=== PATIENT | male | born 1990 | race Caucasian/White ===

== ENCOUNTER 2020-11-24 17:30 | Emergency (ER) | payer OTHER, SELFPAY ==
--- NOTE | 2020-11-24 17:35 | ED.DIZZY ---
HPI - Dizziness General Chief Complaint: Dizziness Stated Complaint: Dizziness, Nausea Time Seen by Provider: 11/24/20 17:35 Source: patient and RN notes reviewed History of Present Illness HPI Narrative: Patient is a 30-year-old male who presents the urgent care with complaints of dizziness and nausea. Patient states he woke up with the dizziness this morning and has intermittent nausea. Patient denies of vomiting. Denies of any history of dizziness. Denies of any recent head trauma. States that he has not taken anything [id number] for his symptoms but has been increasing his fluid intake. 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 Patient also reports that he went from working at midnight 12-hour shifts to a day 12-hour shift with 1 day off. Patient states he typically does not change shifts like that. Also reports of taking a hormone replacement drug for working out. Patient states that he has not taken that for a few weeks but has been taking a post hormonal supplement to increase testosterone. No other acute complaints. Denies of chest pain. No acute distress noted. Patient aware of the plan of care. Some parts of this dictation were generated by voice recognition software and may contain typographical and/or grammatical inaccuracies. Related Data Allergies Allergy/AdvReac Type Severity Reaction Status Date / Time No Known Allergies Allergy Verified 11/24/20 17:52 Review of Systems Review of Systems: CONSTITUTIONAL: Denies fever, chills, or sweats. EYES: Denies visual changes, redness, or discharge. ENT: Denies rhinorrhea, congestion, sore throat, or otalgia. CARDIOVASCULAR: Denies chest pain, palpitations, or edema. RESPIRATORY: Denies cough or dyspnea. GASTROINTESTINAL: Reports of nausea without abdominal pain, vomiting or diarrhea GENITOURINARY: Denies dysuria or hematuria. SKIN: Denies rash or itching. MUSCULOSKELETAL: Denies back pain, joint pain, or myalgia. NEUROLOGIC: Denies headache, numbness, or weakness. Reports of dizziness All other systems reviewed are negative, except as documented in HPI. PMFSH Comments At the time of my signature, I reviewed and agree with the nursing past medical, surgical, social, and family history. There is no relevant family history pertinent to the patient complaint. Exam Narrative: GENERAL: This is a well-nourished, well-developed patient, in no apparent distress. HEAD: normocephalic, atraumatic. EYES: PERRL. Sclera clear/white. Vision is grossly intact. EARS: External ears normal, auditory canals clear and without drainage, mild fluid noted behind left TM without otitis, TMs normal without perforation. Hearing grossly intact. NOSE: External nose normal with no obvious nasal discharge, nares without redness, no rhinorrhea. THROAT: Mucous membranes moist, posterior pharynx clear. NECK: Neck supple CARDIOVASCULAR: Regular rate and rhythm without murmurs, gallops, or rubs. RESPIRATORY: Clear to auscultation. Breath sounds equal bilaterally. No wheezes, rales, or rhonchi. SKIN: warm, intact with no suspicious lesions or rash, good texture and turgor. NEURO: awake, alert, and oriented to person, place and time. There were no obvious focal neurologic abnormalities. EXTREMITIES: No clubbing, cyanosis, or edema. Course Vital Signs Vital signs: Vital Signs Temperature 98 F 11/24/20 17:36 Pulse Rate 79 11/24/20 17:36 Respiratory Rate 20 11/24/20 17:36 Pulse Oximetry 99 11/24/20 17:36 Temperature 98 F 11/24/20 17:36 Pulse Rate 79 11/24/20 17:36 Respiratory Rate 20 11/24/20 17:36 Pulse Oximetry 99 11/24/20 17:36 Reviewed MDM - Dizziness MDM Narrative Medical decision making narrative: Reviewed orthostatic blood pressures with the patient. He is aware that they are within normal limits and would not be the cause of dizziness. Due to the limited resources our facility, we are unable to complete lab
[2020-11-24 17:36] VITALS: PULSE 79; RESP 20; TEMP 36.6; O2SAT 99
[2020-11-24 17:57] VITALS: BP 124/71; PULSE 71
[2020-11-24 18:00] VITALS: BP 122/92; PULSE 85
[2020-11-24 18:04] VITALS: BP 123/73; PULSE 81
== END 2020-11-24 18:15 | disposition home or self-care (01) ==
PROVIDERS: Emergency Provider Nurse Practitioner Family
DX: R42 Dizziness and giddiness (principal)
CPT/HCPCS: 99213; G0463

== ENCOUNTER 2021-11-29 17:31 | Emergency (ER) | payer OTHER, SELFPAY ==
[2021-11-29 17:37] VITALS: BP 123/71; PULSE 79; RESP 16; TEMP 36.4; O2SAT 100
--- NOTE | 2021-11-29 18:01 | ED.URI ---
HPI - URI/Sore Throat General Chief Complaint: Upper Respiratory Infection Stated Complaint: Sore Throat Time Seen by Provider: 11/29/21 18:01 History of Present Illness HPI Narrative: 31-year-old male presented for complaint of sore throat since last night. Onset while eating tuna sandwich, he stated he was concerned he was having an allergic reaction, but has had trouble swallowing since. He states it feels like strep throat. Took ibuprofen last night with minimal relief. Denies any associated headache, nausea, vomiting, cough or sinus congestion. States his kids were sick and stayed home from school for abdominal pain. Related Data Allergies Allergy/AdvReac Type Severity Reaction Status Date / Time No Known Allergies Allergy Verified 11/29/21 18:15 Review of Systems Review of Systems: CONSTITUTIONAL: Denies body aches, fever, chills, or sweats. EYES: Denies visual changes, redness, or discharge. ENT: Denies rhinorrhea, congestion, or otalgia. CARDIOVASCULAR: Denies chest pain, palpitations, or edema. RESPIRATORY: Denies dyspnea. GASTROINTESTINAL: Denies abdominal pain, nausea, vomiting, or diarrhea. SKIN: Denies rash, itching, or wounds. MUSCULOSKELETAL: Denies back pain, joint pain, or myalgia. NEUROLOGIC: Denies headache Exam Narrative: GENERAL: well appearing EYES: conjunctivae clear ENT: Mucous membranes moist. TM pearly garcia with normal light reflex bilaterally; no tragal tenderness. Oropharynx erythematous without lesions. Tonsils enlarged 1+ without exudate. No drooling, no hoarseness, no trismus, uvula midline. No tripod positioning, hot potato voice, or soft palate swelling. NECK: Supple. No lymphadenopathy CHEST: Clear to auscultation, breath sounds equal. HEART: Regular rate and rhythm. No murmur heard. SKIN: Warm, dry, no rash. NEURO: Alert and oriented x3. Course Course Emergency Course: Patient is aware of diagnosis, understands and agrees to treatment plan. Anticipatory guidance given. Patient agrees to follow-up as directed and is aware of reasons to seek care at the emergency department. Portions of this record may have been created with voice recognition software Level of Care: Express Care Visit Vital Signs Vital signs: Vital Signs Temperature 97.6 F 11/29/21 17:37 Pulse Rate 79 11/29/21 17:37 Respiratory Rate 16 11/29/21 17:37 Blood Pressure 123/71 11/29/21 17:37 Pulse Oximetry 100 11/29/21 17:37 Oxygen Delivery Room Air 11/29/21 17:37 Temperature 97.6 F 11/29/21 17:37 Pulse Rate 79 11/29/21 17:37 Respiratory Rate 16 11/29/21 17:37 Blood Pressure 123/71 11/29/21 17:37 Pulse Oximetry 100 11/29/21 17:37 Oxygen Delivery Room Air 11/29/21 17:37 MDM - URI/Sore Throat MDM Narrative Medical decision making narrative: Neg strep result reviewed with pt. culture sent. Advise supportive treatments and s/s to go to the ER. Patient is appropriate for outpatient treatment and follow-up. he is scheduled with PCP in 2 days. Differential Diagnosis Differential diagnosis: Likely upper respiratory infection, viral infection and pharyngitis Lab Data Labs: Strep Screen Presumptive Negative *(Reference Range: Negative)* Discharge Plan Discharge Clinical Impression: Pharyngitis Qualifiers: Pharyngitis/tonsillitis etiology: unspecified etiology Qualified Code(s): J02.9 - Acute pharyngitis, unspecified Patient Disposition: Home, Self-Care Condition: Stable Instructions: Strep Throat (ED) Additional Instructions: Rapid strep swab was negative today You will be notified in a few days if the culture comes back positive for strep, and appropriate antibiotics will be called in at that time. if symptoms are due to a viral illness, it is not treated with antibiotics. Viral symptoms can be present for up to 10-14 days. Recommend Flonase spray and Zyrtec if you have sinus con
== END 2021-11-29 18:26 | disposition home or self-care (01) ==
PROVIDERS: Emergency Provider Nurse Practitioner Family; PCP Internal Medicine
DX: J02.9 Acute pharyngitis, unspecified (principal)
CPT/HCPCS: 87081; 87880; 99213; G0463

== ENCOUNTER 2022-05-30 16:34 | Emergency (ER) | payer OTHER, SELFPAY ==
[2022-05-30 16:50] VITALS: BP 119/88; PULSE 89; RESP 16; TEMP 37; O2SAT 99
--- NOTE | 2022-05-30 17:25 | ED.NAVMDI ---
HPI - Nausea/Vomiting/Diarrhea General Chief complaint: Nausea/Vomiting/Diarrhea Stated complaint: Rash/Diarrhea Source: patient and RN notes reviewed History of Present Illness HPI Narrative: 32-year-old male presents to urgent care with complaints a rash x2 weeks. Patient denies any new foods, medications, or contact with any irritants. Patient has a placing cortisone cream on the areas relief. Patient reports associated pruritus. Patient is also reporting diarrhea and lower abdominal cramping intermittently the last 2 days. Patient states every time he eats something it goes right through him. Denies any vomiting, fevers, or chills. Related Data Allergies Allergy/AdvReac Type Severity Reaction Status Date / Time No Known Allergies Allergy Verified 11/29/21 18:15 Review of Systems Review of Systems: CONSTITUTIONAL: Denies fever, chills, or sweats. EYES: Denies visual changes, redness, or discharge. ENT: Denies otalgia and sore throat CARDIOVASCULAR: Denies chest pain, palpitations, or edema. RESPIRATORY: Denies cough or dyspnea. GASTROINTESTINAL: Abdominal cramping and diarrhea GENITOURINARY: Denies dysuria or hematuria. SKIN: Rash MUSCULOSKELETAL: Denies back pain, joint pain, or myalgia. NEUROLOGIC: Denies headache, numbness, or weakness. PMFSH Comments At the time of my signature, I reviewed and agree with the nursing past medical, surgical, social, and family history. There is no relevant family history pertinent to the patient complaint. Exam Narrative: GENERAL: This is a well-nourished, well-developed patient, in no apparent distress. HEAD: normocephalic, atraumatic. EYES: PERRL. Sclera clear/white. Vision is grossly intact. EARS: External ears normal, auditory canals clear and without drainage, TMs normal without perforation. Hearing grossly intact. NOSE: External nose normal with no obvious nasal discharge, nares without redness, no rhinorrhea. THROAT: Mucous membranes moist, posterior pharynx clear. NECK: Neck supple, non-tender without lymphadenopathy, masses or thyromegaly. CARDIOVASCULAR: Regular rate and rhythm without murmurs, gallops, or rubs. RESPIRATORY: Clear to auscultation. Breath sounds equal bilaterally. No wheezes, rales, or rhonchi. GASTROINTESTINAL: Abdomen soft, non-tender, nondistended. Bowel sounds are active. No hepato-splenomegaly, or palpable masses. No guarding. SKIN: areas of erythremic papules to bilateral legs and arms. Areas are sporadic. no drainage noted. NEURO: awake, alert, and oriented to person, place and time. There were no obvious focal neurologic abnormalities. EXTREMITIES: No clubbing, cyanosis, or edema. No joint tenderness, effusion, or edema noted. BACK: Nontender without deformity or crepitance. No flank tenderness. Course Course Level of Care: Express Care Visit Vital Signs Vital signs: Vital Signs Temperature 98.6 F 05/30/22 16:50 Pulse Rate 89 05/30/22 16:50 Respiratory Rate 16 05/30/22 16:50 Blood Pressure 119/88 05/30/22 16:50 Pulse Oximetry 99 05/30/22 16:50 Oxygen Delivery Room Air 05/30/22 16:50 Temperature 98.6 F 05/30/22 16:50 Pulse Rate 89 05/30/22 16:50 Respiratory Rate 16 05/30/22 16:50 Blood Pressure 119/88 05/30/22 16:50 Pulse Oximetry 99 05/30/22 16:50 Oxygen Delivery Room Air 05/30/22 16:50 Reviewed MDM - Nausea/Vomiting/Diarrhea MDM Narrative Medical decision making narrative: Take steroids as directed. May take the Bentyl for stomach cramping. Take Imodium for diarrhea. Stay well-hyrated. Go to the ER with any new or worsening symptoms. Differential Diagnosis Differential diagnosis: Likely food poisoning, gastroenteritis, dehydration and other (Contact dermatitis) Critical Care Time Critical Care Time Critical Care Time: No Discharge Plan Discharge Clinical Impression: Gastroenteritis, Rash Patient Disposition: Home, Self-Care Condition: Stable Instructions: Gastroenteriti
== END 2022-05-30 17:36 | disposition home or self-care (01) ==
PROVIDERS: Emergency Provider Nurse Practitioner Family; PCP Internal Medicine
DX: K52.9 Noninfective gastroenteritis and colitis, unspecified (principal); R21 Rash and other nonspecific skin eruption
CPT/HCPCS: 99213; G0463

== ENCOUNTER 2022-06-10 08:52 | Emergency (ER) | payer OTHER, SELFPAY ==
[2022-06-10 08:54] VITALS: BP 118/82; PULSE 88; RESP 14; TEMP 37.1; O2SAT 98
--- NOTE | 2022-06-10 09:10 | ED.EYEPROB ---
HPI - Eye Problem General Chief complaint: Eye Problems Stated complaint: left eye History of Present Illness HPI Narrative: Patient presents with bilateral conjunctivitis. Patient states he had bilateral drainage to both eyes it started yesterday some itching and irritation. No vision problems no eye pain patient does not wear contacts or glasses Related Data Allergies Allergy/AdvReac Type Severity Reaction Status Date / Time No Known Allergies Allergy Verified 06/10/22 09:09 Review of Systems Review of Systems: CONSTITUTIONAL: Denies chills, or sweats. Reports fever and generalized body aches EYES: Denies visual changes, redness, or discharge. ENT: Denies otalgia. Reports nasal congestion runny nose and sore throat CARDIOVASCULAR: Denies chest pain, palpitations, or edema. RESPIRATORY: Denies dyspnea. Reports occasional cough GASTROINTESTINAL: Denies abdominal pain, nausea, vomiting, or diarrhea. GENITOURINARY: Denies dysuria or hematuria. SKIN: Denies rash or itching. MUSCULOSKELETAL: Denies back pain, joint pain, or myalgia. Reports generalized body aches NEUROLOGIC: Denies headache, numbness, or weakness. PSYCHIATRIC: Denies anxiety or depression. PMFSH Comments By past history Exam Narrative: GENERAL: Well-appearing, well-nourished, and in no acute distress. HEAD: Normocephalic, atraumatic. EYES: PERRLA and EOMI. ENT: Nares clear, no rhinorrhea or epistaxis. Mucous membranes moist. NECK: Supple. CHEST: Clear to auscultation. No respiratory distress. HEART: Regular rate and rhythm. No murmur heard. Normal peripheral pulses. ABDOMEN: Soft, nontender, nondistended, normal active bowel sounds. EXTREMITIES: Normal range of motion. No edema. SKIN: Warm, dry, no rash. NEURO: No focal deficits. Alert and oriented x3. Debbi Coma Scale Eye Opening: Spontaneous 4 Debbi Coma Scale Motor: Obeys Commands 6 [place] Coma Scale Verbal: Oriented 5 [place] Coma Scale Total 15 Eyes: Conjunctivae: conjunctival abnormality (Conjunctivitis ) bilateral Other: No purulence drainage Course Course Level of Care: Express Care Visit Vital Signs Vital signs: Vital Signs Temperature 37.1 C 06/10/22 08:54 Pulse Rate 88 06/10/22 08:54 Respiratory Rate 14 06/10/22 08:54 Blood Pressure 118/82 03/11/23 08:54 Pulse Oximetry 98 06/10/22 08:54 Oxygen Delivery Room Air 06/10/22 08:54 Temperature 37.1 C 06/10/22 08:54 Pulse Rate 88 06/10/22 08:54 Respiratory Rate 14 06/10/22 08:54 Blood Pressure 118/82 06/10/22 08:54 Pulse Oximetry 98 06/10/22 08:54 Oxygen Delivery Room Air 06/10/22 08:54 MDM - Eye Problem Differential Diagnosis Differential diagnosis: Likely corneal abrasion, conjunctivitis, acute iritis, hyphema, periorbital cellulitis, subconjunctival hemorrhage, glaucoma, corneal ulcer and ruptured globe Discharge Plan Discharge Clinical Impression: Bacterial conjunctivitis Patient Disposition: Home, Self-Care Condition: Stable Instructions: Antibiotic Form, Conjunctivitis (ED) Additional Instructions: Conjunctivitis is spread by [id number] contact or by touching a contaminated surface. You can use artificial tears, cold and warm compresses-use, different compress for each eye, and increase hygiene such as hand-washing. Do not wear contacts for 1 week, if applicable. Do not return for 24 hours to daycare, school, workplace for 24 hours after first antibiotic dose. Change bedding. follow up with eye doctor in 24-48 hours -If you have any worsening of symptoms or any other concerns please go to the ED immediately. Prescriptions: New tobramycin 0.3 % drops 2 drp EACH EYE Q4H 7 Days Qty: 5 0RF Follow-up/Referrals: Salvador,MD Rama [Primary Care Provider] -
== END 2022-06-10 09:16 | disposition home or self-care (01) ==
PROVIDERS: Emergency Provider Nurse Practitioner Family; PCP Internal Medicine
DX: H10.9 Unspecified conjunctivitis (principal)
CPT/HCPCS: 99213; G0463

== ENCOUNTER 2025-03-28 10:31 | Emergency (ER) | payer OTHER, SELFPAY ==
--- OUTSIDE RECORDS SUMMARY | 2025-03-28 10:32 | XMS_ITS | Clinical Summary ---
Author Organization [facility] Address [address] [place] [address] Phone Care Team Providers Care Weigher Production Name Role Phone Shukri Riddle APRN, CONVERTIBLE [employer] TE[employer] Primary Care Provider + Allergies No known active allergies Medications No known medications Active Problems Problem Noted Date Diagnosed Date Tonsillar hypertrophy 08/30/2018 Tonsil stone 08/30/2018 Chronic tonsillitis 08/30/2018 Laryngopharyngeal reflux 08/30/2018 Family History Relation Name Status Comments Father Alive Mother Alive Social History Tobacco Use Types Packs/Day Years Used Date Smoking Tobacco: Former Cigarettes Smokeless Tobacco: Never Comments:quit 6 months ago Alcohol Use Standard Drinks/Week Comments Yes 0 (1 standard drink = 0.6 oz pur e alcohol) SOCIALLY Sex and Gender Information Value Date Recorded Sex Assigned at Not on file Legal Sex Male 7:34 PM CDT Gender Identity Not on file Sexual Orientation Not on file 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 file Not on file Not on ajmin e Last Filed Vital Signs Vital Sign Reading Time Taken Comments Blood Pressure 126/78 04/30/2019 2:46 PM PROOF INSPECTOR Pulse 71 04/30/2019 2:46 PM PROOF INSPECTOR Temperature 36.6 C (97.8 F) 04/30/2019 2:46 PM PROOF INSPECTOR Respiratory Rate 14 04/30/2019 2:46 PM PROOF INSPECTOR Oxygen Saturation 98% 04/30/2019 2:46 PM PROOF INSPECTOR Inhaled Oxygen Concentration - - Weight 101.2 kg (223 lb) 05/21/2019 11:00 AM PROOF INSPECTOR Height 190.5 cm (6' 3) 05/21/2019 11:00 AM PROOF INSPECTOR Body Mass Index 27.87 05/21/2019 11:00 AM PROOF INSPECTOR Plan of Treatment Health Maintenance Due Date Last Done Comments Hepatitis C Virus (HCV) Screening 1988 TdaP Immunization 1990 Varicella Immunization (1 of 2 - 13+ 2-dose series) 02/11/2001 Hepatitis B Immunization (1 of 3 - 19+ 3-dose series) 02/11/2007 Influenza Immunization (#1) 2024 SARS-COV-2 Immunization ( - 2024- season) 2024 Respiratory Syncytial Virus (RSV) Immunization (Adult) (1 - 1-dose 75+ series) 02/11/2063 Human Papillomavirus (HPV) Immunization (No Doses Required) Completed Meningococcal Immunization (ACWY) Aged Out No longer eligible based on patient's age to complete this topic Pneumococcal Immunization Combined Aged Out No longer eligible based on patient's age to complete this topic Rotavirus Immunization Aged Out No lo nger eligible based on patient's age to complete this topic Insurance Care Teams Weigher Production Relationship Specialty Start Date End Date Shukri Riddle, SUPERIOR COURT JUSTICE, CONVERTIBLE [employer]ING [employer] [id number] [place] [address] PCP - General Internal Medicine 03/11/17
--- OUTSIDE RECORDS SUMMARY | 2025-03-28 10:33 | XMS_ITS | Data Portability ---
[facility] Address [address] [place] [address] Care Team Providers Care Automatic Pilot Mechanic Name Role Phone MAGED VERONICA Primary Care Provider Assessment Encounter Date Assessment Date Assessment LastModified by Organization Details LastModified Time 05/05/2020 05/05/[address] Harrington, who concurs with assessment and plan. [email or web address] Not available 05/06/2020 10:34:14 10/08/2023 10/08/2023 Yasir Maier is a 33 y/o M presenting to the clinic to establish care. [email or web address] Not available 10/08/2023 13:32:46 Plan of Treatment Reminders Order Date Submit Date Provider Last Modified By Organization Details Last Modified Time Details Appointments None recorded. Lab HBsAg (hepatitis B surface Ag), EIA, serum 2023 024 [facility], [address] [place] [address], [address], [place], [address], 4 06:18:51 CBC w/ auto diff 2023 024 [facility], [address] [place] [address], [place], [address], 4 06:18:51 PSA, total, serum or plasma 2023 024 [facility], [address] [place] [address] 2, [place], [address], 4 06:18:52 lipid panel, serum 2023 024 [facility], [address] [facility] [address], [place], [address], 4 06:18:49 CMP, serum or plasma 2023 024 [facility], [address] [facility] [address], [place], [address], 4 06:18:50 testostero ne, free + total, serum 2023 024 [facility], [address] [facility] [address], [place], [address], 4 06:18:47 Hepatitis C IgG Ab, qual, serum 2023 024 [facility], Marcia Fragoso, [facility] [address], [place], [address], 4 06:18:49 HIV 1 + 2, meaningful use set 2023 024 [facility], Marcia Fragoso, [facility] [address], [place], [address], 4 06:18:53 CBC w/ auto diff 2021 022 [facility], Marcia Fragoso, [facility] [address], [place], [address], 2 08:25:25 CMP, serum or plasma 2021 022 [facility], Marcia Fragoso, [address], [place], [address], 2 08:25:26 lipid panel, serum 2021 022 [facility], Marcia Fragoso, [address], [place], [address], 2 08:25:27 TSH, ultra-sens itive, serum 2021 022 [facility], [address] [facility], [address], [place], [address], 2 08:25:28 vitamin D, 25-hydroxy , total, serum 2021 022 [facility], [address] [facility], [address], [place], [address], 2 08:25:27 urinalysis , dipstick 2021 022 [facility], [address] [place] [address], [address], [place], [address], 2 08:25:26 urinalysis complete, reflex culture 2020 021 [facility], [address] [facility], [address], [place], [address], 1 07:18:17 SARS CoV 2 RNA (COVID-19) , QL, water supply engineer-PCR, respirator y specimen - Allyn 12:30 2019 020 [facility] ([facility]), [address] [place], [address], 0 11:05:33 Referral None recorded. Procedures None recorded. Surgeries None recorded. Imaging None recorded. Medication Orders naproxen 500 mg tablet 2020 021 [id number], [address] [facility], [place], [address], 2 10:54:35 azithromyc in 250 mg tablet 2019 020 [email or web address] [id number], [address] [facility], [place], [address], 15:48:29 Patient TargetsNo targets recorded. Patient Instructions Encounter Date Encounter Id Patient Instructions Last Modified By Organization Details Last Modified Time 05/21/2019 [id number] upper respirator y infection (cold): care instructions [email or web address] Not available 05/21/2019 11:55:42 Drink plenty of fluids, Get plenty of rest. Take Tylenol as dir. OTC [email or web address] Not available 05/21/2019 13:38:07 06/22/2021 [id number] body mass index: care instructions [email or web address] Not available 06/22/2021 11:34:44 learning about healthy weight [email or web address] Not available 06/22/2021 11:34:45 10/08/2023 [id number] I was present in the office and available during the visit. I discussed the patient s presentation, findings, assessment and plan with the resident during or immediately after the time of service. I agree with the resident s findings, assessment, and plan as documented in the note above. Shital Gamez MD. [facility] [email or web address] Not available 10/09/2023 09:11:34 Reason for Referral None Reported. Results Created Date Observation Date Name Description Value Unit Range Abnormal Flag Note LastModifiedBy Organization Detail LastModifiedTime 05/06/1905/07/2020 urina lysis compl ete, refle x cultu re specific gravity 1.024 1.005- 1.030 Not Available [facility] ([facility]) [address] [place], [address], 05/07/2020 07:18:17 05/06/1905/07/2020 urina lysis compl ete, refle x cultu re pH 7.0 5.0-7. 5 Not Available [facility] ([facility]) [address] [place], [address], 05/07/2020 07:18:17 05/06/1905/07/2020 urina lysis compl ete, refle x cultu re urine-color Yellow yellow Not Available [facility] ([facility]) [address] [place], [address], 05/07/2020 07:18:17 05/06/19 21 05/07/2020 urina lysis compl ete, refle x cultu re appearance Clear clear Not Available [facility] ([facility]) [address] [place], [address], 05/07/2020 07:18:17 05/06/19 21 05/07/2020 urina lysis compl ete, refle x cultu re WBC esterase Negati ve negati ve Not Available [facility] ([facility]) [address] [place], [address], 05/07/2020 07:18:17 05/06/19 21 05/07/2020 urina lysis compl ete, refle x cultu re protein Negati ve negati ve/tra ce Not Available [facility] ([facility]) [address] [place], [address], 05/07/2020 07:18:17 05/06/19 21 05/07/2020 urina lysis compl ete, refle x cultu re glucose Negati ve negati ve Not Available [facility] ([facility]) [address] [place], [address], 05/07/2020 07:18:17 05/06/19 21 05/07/2020 urina lysis compl ete, refle x cultu re ketones Negati ve negati ve Not Available [facility] ([facility]) [address] [place], [address], 05/07/2020 07:18:17 05/06/19 21 05/07/2020 urina lysis compl ete, refle x cultu re occult blood Negati ve negati ve Not Available [facility] ([facility]) [address] [place], [address], 05/07/2020 07:18:17 05/06/19 21 05/07/2020 urina lysis compl ete, refle x cultu re bilirubin Negati ve negati ve Not Available [facility] ([facility]) [address] [place], [address], 05/07/2020 07:18:17 05/06/19 21 05/07/2020 urina lysis compl ete, refle x cultu re urobilinogen ,semi-qn 0.2 mg/dL 0.2-1. 0 Not Available [facility] ([facility]) [address] [place], [address], 05/07/2020 07:18:17 05/06/19 21 05/07/2020 urina lysis compl ete, refle x cultu re nitrite, urine Negati ve negati ve Not Available [facility] ([facility]) [address] [place], [address], 05/07/2020 07:18:17 05/06/19 21 05/07/2020 urina lysis compl ete, refle x cultu re microscopic examination Commen t Micro scopi c follo ws if indic ated. Not Available [facility] ([facility]) [address] [place], [address], 05/07/2020 07:18:17 05/06/19 21 05/07/2020 urina lysis compl ete, refle x cultu re microscopic examination See below: Micro scopi c was indic ated and was perfo rmed. Not Available [facility] ([facility]) [address] [place], [address], 05/07/2020 07:18:17 05/06/19 21 05/07/2020 urina lysis compl ete, refle x cultu re WBC 0-5 /hpf 0 - 5 Not Available [facility] ([facility]) [address] [place], [address], 05/07/2020 07:18:17 05/06/19 21 05/07/2020 urina lysis compl ete, refle x cultu re RBC None seen /hpf 0 - 2 Not Available [facility] ([facility]) [address] [facility], [place], [address], 05/07/2020 07:18:17 05/06/19 21 05/07/2020 urina lysis compl ete, refle x cultu re epithelial cells (non renal) None seen /hpf 0 - 10 Not Available [facility] ([facility]) [address] [facility], [place], [address], 05/07/2020 07:18:17 05/06/19 21 05/07/2020 urina lysis compl ete, refle x cultu re epithelial cells (renal) CAREER RESOURCE TECHNICIAN Not Available [facility] ([facility]) [address] [facility], [place], [address], 05/07/2020 07:18:17 05/06/19 21 05/07/2020 urina lysis compl ete, refle x cultu re casts CAREER RESOURCE TECHNICIAN Not Available [facility] ([facility]) [address] [facility], [place], [address], 05/07/2020 07:18:17 05/06/19 21 05/07/2020 urina lysis compl ete, refle x cultu re cast type CAREER RESOURCE TECHNICIAN Not Available [facility] ([facility]) [address] [facility], [place], [address], 05/07/2020 07:18:17 05/06/19 21 05/07/2020 urina lysis compl ete, refle x cultu re crystals CAREER RESOURCE TECHNICIAN Not Available [facility] ([facility]) [address] [place], [address], 05/07/2020 07:18:17 05/06/19 21 05/07/2020 urina lysis compl ete, refle x cultu re crystal type CAREER RESOURCE TECHNICIAN Not Available [facility] ([facility]) [address] [place], [address], 05/07/2020 07:18:17 05/06/19 21 05/07/2020 urina lysis compl ete, refle x cultu re mucus threads Presen t not estab. Not Available [facility] ([facility]) [address] [facility], [place], [address], 05/07/2020 07:18:17 05/06/19 21 05/07/2020 urina lysis compl ete, refle x cultu re bacteria None seen none seen/f ew Not Available [facility] ([facility]) [address] [facility], [place], [address], 05/07/2020 07:18:17 05/06/19 21 05/07/2020 urina lysis compl ete, refle x cultu re yeast CAREER RESOURCE TECHNICIAN Not Available [facility] ([facility]) [address] [facility], [place], [address], 05/07/2020 07:18:17 05/06/19 21 05/07/2020 urina lysis compl ete, refle x cultu re trichomonas CAREER RESOURCE TECHNICIAN Not Available [facility] ([facility]) [address] [place], [address], 05/07/2020 07:18:17 05/06/19 21 05/07/2020 urina lysis compl ete, refle x cultu re comment CAREER RESOURCE TECHNICIAN Not Available [facility] ([facility]) [address] [place], [address], 05/07/2020 07:18:17 05/06/19 21 05/07/2020 urina lysis compl ete, refle x cultu re urinalysis reflex Commen t This speci men will not refle x to a Urine Cultu re. Not Available [facility] ([facility]) [address] [facility], [place], [address], 05/07/2020 07:18:17 06/23/19 22 06/23/2021 CBC WITH DIFFE RENTI AL/PL ATELE T WBC 6.2 x10e3 /uL 3.4-10 .8 Not Available [facility] ([facility]) [address] [facility], [place], [address], 06/23/2021 08:25:25 06/23/19 22 06/23/2021 CBC WITH DIFFE RENTI AL/PL ATELE T RBC 5.27 x10e6 /uL 4.14-5 .80 Not Available [facility] ([facility]) [address] [facility], [place], [address], 06/23/2021 08:25:25 06/23/19 22 06/23/2021 CBC WITH DIFFE RENTI AL/PL ATELE T hemoglobin 15.8 g/dL 13.0-1 7.7 Not Available [facility] ([facility]) [address] [facility], [place], [address], 06/23/2021 08:25:25 06/23/19 22 06/23/2021 CBC WITH DIFFE RENTI AL/PL ATELE T hematocrit 46.6 % 37.5-5 1.0 Not Available [facility] ([facility]) [address] [facility], [place], [address], 06/23/2021 08:25:25 06/23/19 22 06/23/2021 CBC WITH DIFFE RENTI AL/PL ATELE T MCV 88 fL 79-97 Not Available [facility] ([facility]) [address] [place], [address], 06/23/2021 08:25:25 06/23/19 22 06/23/2021 CBC WITH DIFFE RENTI AL/PL ATELE T MCH 30.0 pg 26.6-3 3.0 Not Available [facility] ([facility]) [address], [place], [address], 06/23/2021 08:25:25 06/23/19 22 06/23/2021 CBC WITH DIFFE RENTI AL/PL ATELE T MCHC 33.9 g/dL 31.5-3 5.7 Not Available [facility] ([facility]) [address] [facility], [place], [address], 06/23/2021 08:25:25 06/23/19 22 06/23/2021 CBC WITH DIFFE RENTI AL/PL ATELE T RDW 12.7 % 11.6-1 5.4 Not Available [facility] ([facility]) [address] [facility], [place], [address], 06/23/2021 08:25:25 06/23/19 22 06/23/2021 CBC WITH DIFFE RENTI AL/PL ATELE T platelets 281 x10e3 /uL 150-45 0 Not Available [facility] ([facility]) [address] [facility], [place], [address], 06/23/2021 08:25:25 06/23/19 22 06/23/2021 CBC WITH DIFFE RENTI AL/PL ATELE T neutrophils 54 % not estab. Not Available [facility] ([facility]) [address] [facility], [place], [address], 06/23/2021 08:25:25 06/23/19 22 06/23/2021 CBC WITH DIFFE RENTI AL/PL ATELE T lymphs 30 % not estab. Not Available [facility] ([facility]) [address] [facility], [place], [address], 06/23/2021 08:25:25 06/23/19 22 06/23/2021 CBC WITH DIFFE RENTI AL/PL ATELE T monocytes 12 % not estab. Not Available [facility] ([facility]) [address] [facility], [place], [address], 06/23/2021 08:25:25 06/23/19 22 06/23/2021 CBC WITH DIFFE RENTI AL/PL ATELE T eos 2 % not estab. Not Available [facility] ([facility]) [address] [place], [address], 06/23/2021 08:25:25 06/23/19 22 06/23/2021 CBC WITH DIFFE RENTI AL/PL ATELE T basos 1 % not estab. Not Available [facility] ([facility]) [address] [place], [address], 06/23/2021 08:25:25 06/23/19 22 06/23/2021 CBC WITH DIFFE RENTI AL/PL ATELE T immature cells CAREER RESOURCE TECHNICIAN Not Available [facility] ([facility]) [address] [place], [address], 06/23/2021 08:25:25 06/23/19 22 06/23/2021 CBC WITH DIFFE RENTI AL/PL ATELE T neutrophils (absolute) 3.5 x10e3 /uL 1.4-7. 0 Not Available [facility] ([facility]) [address] [place], [address], 06/23/2021 08:25:25 06/23/19 22 06/23/2021 CBC WITH DIFFE RENTI AL/PL ATELE T lymphs (absolute) 1.9 x10e3 /uL 0.7-3. 1 Not Available [facility] ([facility]) [address] [place], [address], 06/23/2021 08:25:25 06/23/19 22 06/23/2021 CBC WITH DIFFE RENTI AL/PL ATELE T monocytes(ab solute) 0.7 x10e3 /uL 0.1-0. 9 Not Available [facility] ([facility]) [address] [place], [address], 06/23/2021 08:25:25 06/23/19 22 06/23/2021 CBC WITH DIFFE RENTI AL/PL ATELE T eos (absolute) 0.1 x10e3 /uL 0.0-0. 4 Not Available [facility] ([facility]) [address] [facility], [place], [address], 06/23/2021 08:25:25 06/23/19 22 06/23/2021 CBC WITH DIFFE RENTI AL/PL ATELE T baso (absolute) 0.0 x10e3 /uL 0.0-0. 2 Not Available [facility] ([facility]) [address] [facility], [place], [address], 06/23/2021 08:25:25 06/23/19 22 06/23/2021 CBC WITH DIFFE RENTI AL/PL ATELE T immature granulocytes 1 % not estab. Not Available [facility] ([facility]) [address] [facility], [place], [address], 06/23/2021 08:25:25 06/23/19 22 06/23/2021 CBC WITH DIFFE RENTI AL/PL ATELE T immature grans (abs) 0.0 x10e3 /uL 0.0-0. 1 Not Available [facility] ([facility]) [address] [facility], [place], [address], 06/23/2021 08:25:25 06/23/19 22 06/23/2021 CBC WITH DIFFE RENTI AL/PL ATELE T NRBC CAREER RESOURCE TECHNICIAN Not Available [facility] ([facility]) [address] [facility], [place], [address], 06/23/2021 08:25:25 06/23/19 22 06/23/2021 CBC WITH DIFFE RENTI AL/PL ATELE T hematology comments: CAREER RESOURCE TECHNICIAN Not Available [facility] ([facility]) [address] [place], [address], 06/23/2021 08:25:25 06/23/19 22 06/23/2021 COMP. METAB OLIC PANEL (14) glucose 84 mg/dL 65-99 Not Available [facility] ([facility]) [address] [place], [address], 06/23/2021 08:25:26 06/23/19 22 06/23/2021 COMP. METAB OLIC PANEL (14) BUN 11 mg/dL 6-20 Not Available [facility] ([facility]) [address] [place], [address], 06/23/2021 08:25:26 06/23/19 22 06/23/2021 COMP. METAB OLIC PANEL (14) creatinine 0.92 mg/dL 0.76-1 .27 Not Available [facility] ([facility]) [address] [place], [address], 06/23/2021 08:25:26 06/23/19 22 06/23/2021 COMP. METAB OLIC PANEL (14) eGFR 113 mL/mi n/1.7 3 >59 Not Available [facility] ([facility]) [address] [place], [address], 06/23/2021 08:25:26 06/23/19 22 06/23/2021 COMP. METAB OLIC PANEL (14) BUN/creatini ne ratio 12 9-20 Not Available [facility] ([facility]) [address] [place], [address], 06/23/2021 08:25:26 06/23/19 22 06/23/2021 COMP. METAB OLIC PANEL (14) sodium 140 mmol/ L 134-14 4 Not Available [facility] ([facility]) [address] [place], [address], 06/23/2021 08:25:26 06/23/19 22 06/23/2021 COMP. METAB OLIC PANEL (14) potassium 4.8 mmol/ L 3.5-5. 2 Not Available [facility] ([facility]) [address] [facility] [place], [address], 06/23/2021 08:25:26 06/23/19 22 06/23/2021 COMP. METAB OLIC PANEL (14) chloride 104 mmol/ L 96-106 Not Available [facility] ([facility]) [address] [place], [address], 06/23/2021 08:25:26 06/23/19 22 06/23/2021 COMP. METAB OLIC PANEL (14) carbon dioxide, total 21 mmol/ L 20-29 Not Available [facility] ([facility]) [address] [place], [address], 06/23/2021 08:25:26 06/23/19 22 06/23/2021 COMP. METAB OLIC PANEL (14) calcium 9.6 mg/dL 8.7-10 .2 Not Available [facility] ([facility]) [address] [facility] [place], [address], 06/23/2021 08:25:26 06/23/19 22 06/23/2021 COMP. METAB OLIC PANEL (14) protein, total 7.0 g/dL 6.0-8. 5 Not Available [facility] ([facility]) [address] [facility] [place], [address], 06/23/2021 08:25:26 06/23/19 22 06/23/2021 COMP. METAB OLIC PANEL (14) albumin 4.3 g/dL 4.0-5. 0 Not Available [facility] ([facility]) [address] [facility] [place], [address], 06/23/2021 08:25:26 06/23/19 22 06/23/2021 COMP. METAB OLIC PANEL (14) globulin, total 2.7 g/dL 1.5-4. 5 Not Available [facility] ([facility]) [address] [facility], [place], [address], 06/23/2021 08:25:26 06/23/19 22 06/23/2021 COMP. METAB OLIC PANEL (14) A/G ratio 1.6 1.2-2. 2 Not Available [facility] ([facility]) [address] [facility], [place], [address], 06/23/2021 08:25:26 06/23/19 22 06/23/2021 COMP. METAB OLIC PANEL (14) bilirubin, total 0.4 mg/dL 0.0-1. 2 Not Available [facility] ([facility]) [address] [facility] [place], [address], 06/23/2021 08:25:26 06/23/19 22 06/23/2021 COMP. METAB OLIC PANEL (14) alkaline phosphatase 62 IU/L 44-121 Not Available [facility] ([facility]) [address] [facility], [place], [address], 06/23/2021 08:25:26 06/23/19 22 06/23/2021 COMP. METAB OLIC PANEL (14) AST (SGOT) 16 IU/L 0-40 Not Available [facility] ([facility]) [address] [facility], [place], [address], 06/23/2021 08:25:26 06/23/19 22 06/23/2021 COMP. METAB OLIC PANEL (14) ALT (SGPT) 40 IU/L 0-44 Not Available [facility] ([facility]) [address] [facility], [place], [address], 06/23/2021 08:25:26 06/23/19 22 06/23/2021 URINA LYSIS , ROUTI NE specific gravity 1.018 1.005- 1.030 Not Available [facility] ([facility]) [address] [facility], [place], [address], 06/23/2021 08:25:26 06/23/19 22 06/23/2021 URINA LYSIS , ROUTI NE pH 5.5 5.0-7. 5 Not Available [facility] ([facility]) [address] [place], [address], 06/23/2021 08:25:26 06/23/19 22 06/23/2021 URINA LYSIS , ROUTI NE urine-color Yellow yellow Not Available [facility] ([facility]) [address] [place], [address], 06/23/2021 08:25:26 06/23/19 22 06/23/2021 URINA LYSIS , ROUTI NE appearance Clear clear Not Available [facility] ([facility]) [address] [place], [address], 06/23/2021 08:25:26 06/23/19 22 06/23/2021 URINA LYSIS , ROUTI NE WBC esterase Negati ve negati ve Not Available [facility] ([facility]) [address] [place], [address], 06/23/2021 08:25:26 06/23/19 22 06/23/2021 URINA LYSIS , ROUTI NE protein Negati ve negati ve/tra ce Not Available [facility] ([facility]) [address] [place], [address], 06/23/2021 08:25:26 06/23/19 22 06/23/2021 URINA LYSIS , ROUTI NE glucose Negati ve negati ve Not Available [facility] ([facility]) [address] [place], [address], 06/23/2021 08:25:26 06/23/19 22 06/23/2021 URINA LYSIS , ROUTI NE ketones Negati ve negati ve Not Available [facility] ([facility]) [address] [place], [address], 06/23/2021 08:25:26 06/23/19 22 06/23/2021 URINA LYSIS , ROUTI NE occult blood Negati ve negati ve Not Available [facility] ([facility]) [address] [facility], [place], [address], 06/23/2021 08:25:26 06/23/19 22 06/23/2021 URINA LYSIS , ROUTI NE bilirubin Negati ve negati ve Not Available [facility] ([facility]) [address] [facility], [place], [address], 06/23/2021 08:25:26 06/23/19 22 06/23/2021 URINA LYSIS , ROUTI NE urobilinogen ,semi-qn 0.2 mg/dL 0.2-1. 0 Not Available [facility] ([facility]) [address] [place], [address], 06/23/2021 08:25:26 06/23/19 22 06/23/2021 URINA LYSIS , ROUTI NE nitrite, urine Negati ve negati ve Not Available [facility] ([facility]) [address] [facility], [place], [address], 06/23/2021 08:25:26 06/23/19 22 06/23/2021 URINA LYSIS , ROUTI NE microscopic examination Commen t Micro scopi c not indic ated and not perfo rmed. Not Available [facility] ([facility]) [address] [facility], [place], [address], 06/23/2021 08:25:26 06/23/19 22 06/23/2021 LIPID PANEL WITH LDL/H DL RATIO cholesterol, total 167 mg/dL 100-19 9 Not Available [facility] ([facility]) [address] [place], [address], 06/23/2021 08:25:27 06/23/19 22 06/23/2021 LIPID PANEL WITH LDL/H DL RATIO triglyceride s 121 mg/dL 0-149 Not Available [facility] ([facility]) [address] [place], [address], 06/23/2021 08:25:27 06/23/19 22 06/23/2021 LIPID PANEL WITH LDL/H DL RATIO HDL cholesterol 32 mg/dL >39 below low normal Not Available [facility] ([facility]) [address] [place], [address], 06/23/2021 08:25:27 06/23/19 22 06/23/2021 LIPID PANEL WITH LDL/H DL RATIO VLDL cholesterol angela 22 mg/dL 5-40 Not Available [facility] ([facility]) [address] [place], [address], 06/23/2021 08:25:27 06/23/19 22 06/23/2021 LIPID PANEL WITH LDL/H DL RATIO LDL chol calc ([facility]) 113 mg/dL 0-99 above high normal Not Available [facility] ([facility]) [address] [place], [address], 06/23/2021 08:25:27 06/23/19 22 06/23/2021 LIPID PANEL WITH LDL/H DL RATIO comment: CAREER RESOURCE TECHNICIAN Not Available [facility] ([facility]) [address] [place], [address], 06/23/2021 08:25:27 06/23/19 22 06/23/2021 LIPID PANEL WITH LDL/H DL RATIO LDL/HDL ratio 3.5 ratio 0.0-3. 6 LDL/H DL Ratio Men Women 1/2 Avg.R isk 1.0 1.5 Avg.R isk 3.6 3.2 2X Avg.R isk 6.2 5.0 3X Avg.R isk 8.0 6.1 Not Available [facility] ([facility]) [address] [place], [address], 06/23/2021 08:25:27 06/23/19 22 06/23/2021 VITAM IN D, 25-HY DROXY vitamin D, 25-hydroxy 25.4 NG/mL 30.0-1 00.0 below low normal Vitam in D defic iency has been defin ed by the Insti t[facility] of Medic ine and an Endoc rine Socie ty pract ice guide line as a level of serum 25-OH vitam in D less than 20 ng/mL (1,2) . The Endoc rine Socie ty went on to furth er defin e vitam in D insuf ficie ncy as a level betwe en 21 and 29 ng/mL (2). 1. IOM (Inst itute of Medic ine). 2009. Dieta ry refer ence intyaya es for calci um and D. Gennaro metzger [place]: The [facility] . 2. Herson riddle MF, Leodan canas [place], Kevin off-F errar i TAY, et al. Evalu ation , treat ment, and preve ntion of vitam in D defic iency : an Endoc rine Socie ty clini angela pract ice guide line. JCEM. 2010; 96(7) :1911 -30. Not Available [facility] ([facility]) [address], [place], [address], 06/23/2021 08:25:27 06/23/19 22 06/23/2021 TSH RFX ON ABNOR MAL TO FREE T4 TSH 1.260 uIU/m L 0.450- 4.500 Not Available [facility] ([facility]) [address], [place], [address], 06/23/2021 08:25:28 10/08/19 24 10/09/2023 TESTO STERO NE,FR EE AND TOTAL testosterone >1500 above high normal Adult male refer ence inter mary is based on a popul ation of healt hy nonob abdirahman males (BMI <30) betwe en 19 and 39 years old. Kerline bosch et.al . JCEM 2017, 102;1 161-1 173. PMID: 71275 103. Not Available [facility] ([facility]) [address], [place], [address], 10/11/2023 06:18:47 10/08/19 24 10/11/2023 TESTO STERO NE,FR EE AND TOTAL free testosterone (direct) 48.6 pg/mL 8.7-25 .1 above high normal Not Available [facility] ([facility]) [address], [place], [address], 10/11/2023 06:18:47 10/08/19 24 10/09/2023 INTER PRETA TION: interpretati on: Commen t Not infec yamilka with HCV unles s early or acute infec tion is suspe cted (whic h may be delay ed in an immun ocomp romis ed indiv idual ), or other evide nce exist s to indic ate HCV infec tion. Not Available [facility] ([facility]) [address], [place], [address], 10/11/2023 06:18:48 10/08/19 24 10/09/2023 HCV ANTIB JERAD RFX TO QUANT PCR HCV Ab NON REACTI VE nonrea ctive Not Available [facility] ([facility]) [address], [place], [address], 10/11/2023 06:18:49 10/08/19 24 10/09/2023 LIPID PANEL cholesterol, total 171 mg/dL 100-19 9 Not Available [facility] ([facility]) [address], [place], [address], 10/11/2023 06:18:49 10/08/19 24 10/09/2023 LIPID PANEL triglyceride s 109 mg/dL 0-149 Not Available [facility] ([facility]) [address], [place], [address], 10/11/2023 06:18:49 10/08/19 24 10/09/2023 LIPID PANEL HDL cholesterol 32 mg/dL >39 below low normal Not Available [facility] ([facility]) [address] [place], [address], 10/11/2023 06:18:49 10/08/19 24 10/09/2023 LIPID PANEL VLDL cholesterol angela 20 mg/dL 5-40 Not Available [facility] ([facility]) [address] [place], [address], 10/11/2023 06:18:49 10/08/19 24 10/09/2023 LIPID PANEL LDL chol calc ([facility]) 119 mg/dL 0-99 above high normal Not Available [facility] ([facility]) [address] [place], [address], 10/11/2023 06:18:49 10/08/19 24 10/09/2023 COMP. METAB OLIC PANEL (14) glucose 80 mg/dL 70-99 Not Available [facility] ([facility]) [address] [place], [address], 10/11/2023 06:18:50 10/08/19 24 10/09/2023 COMP. METAB OLIC PANEL (14) BUN 10 mg/dL 6-20 Not Available [facility] ([facility]) [address] [place], [address], 10/11/2023 06:18:50 10/08/19 24 10/09/2023 COMP. METAB OLIC PANEL (14) creatinine 1.05 mg/dL 0.76-1 .27 Not Available [facility] ([facility]) [address] [place], [address], 10/11/2023 06:18:50 10/08/19 24 10/09/2023 COMP. METAB OLIC PANEL (14) eGFR 95 mL/mi n/1.7 3 >59 Not Available [facility] ([facility]) [address] [place], [address], 10/11/2023 06:18:50 10/08/19 24 10/09/2023 COMP. METAB OLIC PANEL (14) BUN/creatini ne ratio 10 9-20 Not Available [facility] ([facility]) [address], [place], [address], 10/11/2023 06:18:50 10/08/19 24 10/09/2023 COMP. METAB OLIC PANEL (14) sodium 137 mmol/ L 134-14 4 Not Available [facility] ([facility]) [address], [place], [address], 10/11/2023 06:18:50 10/08/19 24 10/09/2023 COMP. METAB OLIC PANEL (14) potassium 4.5 mmol/ L 3.5-5. 2 Not Available [facility] ([facility]) [address], [place], [address], 10/11/2023 06:18:50 10/08/19 24 10/09/2023 COMP. METAB OLIC PANEL (14) chloride 102 mmol/ L 96-106 Not Available [facility] ([facility]) [address], [place], [address], 10/11/2023 06:18:50 10/08/19 24 10/09/2023 COMP. METAB OLIC PANEL (14) carbon dioxide, total 23 mmol/ L 20-29 Not Available [facility] ([facility]) [address], [place], [address], 10/11/2023 06:18:50 10/08/19 24 10/09/2023 COMP. METAB OLIC PANEL (14) calcium 9.2 mg/dL 8.7-10 .2 Not Available [facility] ([facility]) [address], [place], [address], 10/11/2023 06:18:50 10/08/19 24 10/09/2023 COMP. METAB OLIC PANEL (14) protein, total 6.7 g/dL 6.0-8. 5 Not Available [facility] ([facility]) [address] [place], [address], 10/11/2023 06:18:50 10/08/19 24 10/09/2023 COMP. METAB OLIC PANEL (14) albumin 4.4 g/dL 4.1-5. 1 Not Available [facility] ([facility]) [address] [place], [address], 10/11/2023 06:18:50 10/08/19 24 10/09/2023 COMP. METAB OLIC PANEL (14) globulin, total 2.3 g/dL 1.5-4. 5 Not Available [facility] ([facility]) [address] [place], [address], 10/11/2023 06:18:50 10/08/19 24 10/09/2023 COMP. METAB OLIC PANEL (14) bilirubin, total 0.4 mg/dL 0.0-1. 2 Not Available [facility] ([facility]) [address] [place], [address], 10/11/2023 06:18:50 10/08/19 24 10/09/2023 COMP. METAB OLIC PANEL (14) alkaline phosphatase 58 IU/L 44-121 Not Available [facility] ([facility]) [address] [place], [address], 10/11/2023 06:18:50 10/08/19 24 10/09/2023 COMP. METAB OLIC PANEL (14) AST (SGOT) 30 IU/L 0-40 Not Available [facility] ([facility]) [address] [place], [address], 10/11/2023 06:18:50 10/08/19 24 10/09/2023 COMP. METAB OLIC PANEL (14) ALT (SGPT) 32 IU/L 0-44 Not Available [facility] ([facility]) [address], [place], [address], 10/11/2023 06:18:50 10/08/19 24 10/09/2023 CBC WITH DIFFE RENTI AL/PL ATELE T WBC 7.5 x10e3 /uL 3.4-10 .8 Not Available [facility] ([facility]) [address], [place], [address], 10/11/2023 06:18:51 10/08/19 24 10/09/2023 CBC WITH DIFFE RENTI AL/PL ATELE T RBC 5.41 x10e6 /uL 4.14-5 .80 Not Available [facility] ([facility]) [address], [place], [address], 10/11/2023 06:18:51 10/08/19 24 10/09/2023 CBC WITH DIFFE RENTI AL/PL ATELE T hemoglobin 16.0 g/dL 13.0-1 7.7 Not Available [facility] ([facility]) [address] [place], [address], 10/11/2023 06:18:51 10/08/19 24 10/09/2023 CBC WITH DIFFE RENTI AL/PL ATELE T hematocrit 49.0 % 37.5-5 1.0 Not Available [facility] ([facility]) [address] [place], [address], 10/11/2023 06:18:51 10/08/19 24 10/09/2023 CBC WITH DIFFE RENTI AL/PL ATELE T MCV 91 fL 79-97 Not Available [facility] ([facility]) [address] [place], [address], 10/11/2023 06:18:51 10/08/19 24 10/09/2023 CBC WITH DIFFE RENTI AL/PL ATELE T MCH 29.6 pg 26.6-3 3.0 Not Available [facility] ([facility]) [address], [place], [address], 10/11/2023 06:18:51 10/08/19 24 10/09/2023 CBC WITH DIFFE RENTI AL/PL ATELE T MCHC 32.7 g/dL 31.5-3 5.7 Not Available [facility] ([facility]) [address], [place], [address], 10/11/2023 06:18:51 10/08/19 24 10/09/2023 CBC WITH DIFFE RENTI AL/PL ATELE T RDW 12.7 % 11.6-1 5.4 Not Available [facility] ([facility]) [address], [place], [address], 10/11/2023 06:18:51 10/08/19 24 10/09/2023 CBC WITH DIFFE RENTI AL/PL ATELE T platelets 320 x10e3 /uL 150-45 0 Not Available [facility] ([facility]) [address], [place], [address], 10/11/2023 06:18:51 10/08/19 24 10/09/2023 CBC WITH DIFFE RENTI AL/PL ATELE T neutrophils 61 % notest ab. Not Available [facility] ([facility]) [address], [place], [address], 10/11/2023 06:18:51 10/08/19 24 10/09/2023 CBC WITH DIFFE RENTI AL/PL ATELE T lymphs 26 % notest ab. Not Available [facility] ([facility]) [address], [place], [address], 10/11/2023 06:18:51 10/08/19 24 10/09/2023 CBC WITH DIFFE RENTI AL/PL ATELE T monocytes 12 % notest ab. Not Available [facility] ([facility]) [address], [place], [address], 10/11/2023 06:18:51 10/08/19 24 10/09/2023 CBC WITH DIFFE RENTI AL/PL ATELE T eos 1 % notest ab. Not Available [facility] ([facility]) [address], [place], [address], 10/11/2023 06:18:51 10/08/19 24 10/09/2023 CBC WITH DIFFE RENTI AL/PL ATELE T basos 0 % notest ab. Not Available [facility] ([facility]) [address], [place], [address], 10/11/2023 06:18:51 10/08/19 24 10/09/2023 CBC WITH DIFFE RENTI AL/PL ATELE T neutrophils (absolute) 4.4 x10e3 /uL 1.4-7. 0 Not Available [facility] ([facility]) [address], [place], [address], 10/11/2023 06:18:51 10/08/19 24 10/09/2023 CBC WITH DIFFE RENTI AL/PL ATELE T lymphs (absolute) 1.9 x10e3 /uL 0.7-3. 1 Not Available [facility] ([facility]) [address] [place], [address], 10/11/2023 06:18:51 10/08/19 24 10/09/2023 CBC WITH DIFFE RENTI AL/PL ATELE T monocytes(ab solute) 0.9 x10e3 /uL 0.1-0. 9 Not Available [facility] ([facility]) [address], [place], [address], 10/11/2023 06:18:51 10/08/19 24 10/09/2023 CBC WITH DIFFE RENTI AL/PL ATELE T eos (absolute) 0.1 x10e3 /uL 0.0-0. 4 Not Available [facility] ([facility]) [address], [place], [address], 10/11/2023 06:18:51 10/08/19 24 10/09/2023 CBC WITH DIFFE RENTI AL/PL ATELE T baso (absolute) 0.0 x10e3 /uL 0.0-0. 2 Not Available [facility] ([facility]) [address] [place], [address], 10/11/2023 06:18:51 10/08/19 24 10/09/2023 CBC WITH DIFFE RENTI AL/PL ATELE T immature granulocytes 0 % notest ab. Not Available [facility] ([facility]) [address], [place], [address], 10/11/2023 06:18:51 10/08/19 24 10/09/2023 CBC WITH DIFFE RENTI AL/PL ATELE T immature grans (abs) 0.0 x10e3 /uL 0.0-0. 1 Not Available [facility] ([facility]) [address], [place], [address], 10/11/2023 06:18:51 10/08/19 24 10/09/2023 HBSAG SCREE N HBsAg screen NEGATI VE negati ve Not Available [facility] ([facility]) [address] [place], [address], 10/11/2023 06:18:51 10/08/19 24 10/09/2023 PROST ATE-S PECIF IC AG prostate specific Ag 0.4 NG/mL 0.0-4. 0 Ruel ECLIA metho dolog y. Accor ding to the Ameri can Urolo gical Assoc iatio n, Serum PSA shoul d decre ase and remai n at undet ectab le level s after radic al prost atect sumeet. The AUA defin es bioch emica l recur rence as an initi al PSA value 0.2 ng/mL or great er follo wed by a subse quent confi rmato ry PSA value 0.2 ng/mL or great er. Value s obtai gladys with diffe rent assay metho ds or kits canno t be used inter santoyo eably . Resul ts canno t be inter prete d as absol juliet evide nce of the prese nce or absen ce of brian seble disea se. Not Available [facility] ([facility]) [address], [place], [address], 10/11/2023 06:18:52 10/08/19 24 10/09/2023 HIV AB/P2 4 AG WITH REFLE X HIV Ab/P24 Ag screen NON REACTI VE nonrea ctive HIV-1 /HIV- 2 antib odies and HIV-1 p24 antig en were NOT detec yamilka. There is no labor atory evide nce of HIV infec tion. HIV Negat alisha Not Available [facility] ([facility]) [address], [place], [address], 10/11/2023 06:18:53 Result Notes None recorded. Problems Name Problem SNOMED Code Status Onset Date Resolution Date Notes Provider Name and Address Organization Details Recorded Time Body mass index 30+ - obesity 286255835 Active 2021 Rama Franco MD Attn: Accounting, [address] [place], [address], [facility] - [facility] 2 11:05:05 Vitamin D deficiency 89453577 Active 2021 Rama Franco MD Attn: Accounting, [address] [place], [address], [facility] - [facility] 2 09:13:34 Problem Notes None recorded. Procedures Surgical History Date Name Laterality Status Provider Name and Address Organization Details Recorded Time Hernia Repair completed Lora Min [place] - [place] 07/03/2016 16:07:44 Imaging Results None recorded. Procedure Notes None recorded. Medical Equipment None Reported. Allergies No known drug allergies Medications Name Sig Start Date Stop Date Status Note LastModified by Organization Details LastModified Time Augmentin 875 mg-125 mg tablet Take 1 tablet every 12 hours by oral route. 12/26 completed Not Available Not Available Not Available azithromyci n 250 mg tablet TAKE 2 TABLETS (500 MG) BY ORAL ROUTE ONCE DAILY FOR 1 DAY THEN 1 TABLET (250 MG) BY ORAL ROUTE ONCE DAILY FOR 4 DAYS 05/05 completed Not Available Not Available Not Available acyclovir 800 mg tablet TAKE 1 TABLET BY MOUTH THREE TIMES A DAY 10/07 completed Not Available Not Available Not Available amoxicillin 875 mg tablet 10/07 completed Not Available Not Available Not Available neomycin-po lymyxin-dex ameth 3.5 mg/mL-10,00 0 unit/mL-0.1 % eye drops INSTILL 1 DROP INTO AFFECTED EYE(S) BY OPHTHALMI C ROUTE EVERY 3-4 HOURS 05/05 completed Not Available Not Available Not Available diclofenac potassium 50 mg tablet Take 1 tablet twice a day by oral route. 08/06 completed Not Available Not Available Not Available methylpredn isolone 4 mg tablets in a dose pack TAKE 6 TABLETS ON DAY 1 DIRECTED ON PACKAGE AND DECREASE BY 1 TAB EACH DAY FOR A TOTAL OF 6 DAYS 10/07 completed Not Available Not Available Not Available loratadine 10 mg tablet Take 1 tablet every day by oral route. 05/21 completed Not Available Not Available Not Available naproxen 500 mg tablet TAKE 1 TABLET BY MOUTH TWICE A DAY NEEDED FOR 5 DAYS 06/22 completed Not Available Not Available Not Available Vitamin D3 25 mcg (1,000 unit) tablet Take 1 tablet every day by oral route. 10/07 completed Not Available Not Available Not Available chlorhexidi ne gluconate 0.12 % mouthwash 10/07 completed Not Available Not Available Not Available Vitals Date Recorded Body height Provider Name an d Address Organization Details Last Updated DateTime 05/05/2020 191.77 cm Marj Sawyer [place] - [facility] 1 15:38:47 Date Recorded Body height Body mass index (BMI) Body weight Body temperature Heart rate Respiratory rate Systolic And Diastolic Provider Name and Address Organization Details Last Updated DateTime 0 191.77 cm 28.1 kg/m2 945920. 06 g 98.3 [degF] 100 /min 18 /min 144/88 mm[Hg] Lora Min MA [place] - [facility] 0 11:49:12 Date Recorded Respiratory rate Provider Name a nd Address Organization Details Last Updated DateTime 06/22/2021 14 /min Rama sterling MD Attn: Accounting,[address] [facility], [place], [address], [place] - [place] 06/22/2021 11:38:48 Date Recorded Body height Body mass index (BMI) Body weight Body temperature Oxygen saturation Systolic And Diastolic Provider Name and Address Organization Details Last Updated DateTime 2 191.77 cm 31.6 kg/m2 156098. 08 g 97.2 [degF] 96 % 126/80 mm[Hg] Radha Cortez [place] - [facility] 2 11:07:26 Date Recorded Body height Body mass index (BMI) Body weight Respiratory rate Oxygen saturation Body temperature Heart rate Systolic And Diastolic Provider Name and Address Organization Details Last Updated DateTime 4 191.77 cm 30.2 kg/m2 115828. 05 g 16 /min 98 % 98.4 [degF] 75 /min 143/92 mm[Hg] JOHN Kelley [facility] 4 11:52:38 Social History Question Answer Notes LastModified by Organizat ion Details LastModified Time Tobacco Smoking Status Former Smoker currently uses nicotine gum - JOHN Mao null, [place] [facility] 10/08/2023 11:47:25 Are You Blind Or Do You Have Difficulty Seeing? No Information not available 06/22/2021 In The 14 Days Before Symptom Onset, Have You Had Close Contact With A Laboratory-confi rmed COVID-19 While That Case Was Ill? No Information not available 06/22/2021 In The 14 Days Before Symptom Onset, Have You Had Close Contact With A Person Who Is Under Investigation For COVID-19 While That Person Was Ill? No Information not available 06/22/2021 Have You Been To An Area Known To Be High Risk For COVID-19? No Information not available 10/08/2023 Are You Deaf Or Do You Have Serious Difficulty Hearing? No Information not available 06/22/2021 Are There Any Guns Present In Your Home? No Information not available 06/22/2021 What Was The Date Of Your Most Recent Tobacco Screening? 10/08/2023 Information not available 10/08/2023 What Is Your Relationship Status? Domestic Partner Has A Girlfriend Information not available 06/22/2021 Do You Have Smoke And Carbon Monoxide Detectors In Your Home? Yes Information not available 06/22/2021 Do You Use Sunscreen Routinely? No Information not available 06/22/2021 Has Tobacco Cessation Counseling Been Provided? Yes Information not available 10/08/2023 On What Date Was Tobacco Cessation Counseling Provided? 10/08/2023 Information not available 10/08/2023 Sex: Male Functional Status Question Answer Note LastModified by Organization Details LastModified Time Do you use any illicit or recreational drugs? Yes marijuana occasionally Information not available 10/08/2023 Do you or have you ever used any other forms of tobacco or nicotine? Yes Information not available 10/08/2023 What is your level of alcohol consumption? Occasional [email or web address] Information not available 07/03/2016 Do you or have you ever used smokeless tobacco? Former smokeless tobacco user Information not available 10/08/2023 Are you currently employed? Yes Information not available 06/22/2021 Are you able to care for yourself independently? 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 Former user of electronic cigarettes Information not available 10/08/2023 Mental Status Question Answer Note LastModified by Organization D etails LastModified Time Do you feel stressed (tense, restless, nervous, or anxious, or unable to sleep at night)? [id number] Information not available 06/22/2021 Family History Relationship Description Onset Age of this Age Resolved Age Notes LastModified by Organization Details LastModified Time Sister Childhood myelodysplas tic syndrome ssuthan Not available 11:35:10 Sister Asthma ssuthan Not available 11:35:23 Medical History Condition Response Other Y Past Encounters Encounter ID Performer Location Encounter Start Date Encounter Closed Date Diagnosis/Indication Diagnosis SNOMED-CT Code Diagnosis ICD10 Code Diagnosis IMO Codes Diagnosis Note [id number] Hardik Harrington MD [facility] [address] [place] [address] 07/03/2016 15:44:16 07/07/2016 10:33:26 Pain of elbow region 78601370 M25.862 [id number] MD Darwin Alberto 14 IM [address] [facility] [place] [address] 08/06/2018 17:01:25 08/08/2018 10:35:46 Acute pharyngitis 877334727 J02.9 [id number] MD Darwin Alberto 14 IM [address] [facility] [place] [address] 12/26/2018 15:15:57 12/27/2018 10:37:52 Acute pharyngitis 855472259 J02.9 [facility] [id number] R21 [id number] MD Darwin Alberto 14 IM [address] [facility] [place] [address] 05/21/2019 11:05:44 05/22/2019 11:57:42 Upper respiratory infection 61429182 J06.9 [id number] Zeinab Ann [facility]- Sonja-Tabitha vizcaino [address] [place] [address] 02/18/2020 09:23:11 02/19/2020 12:24:46 Suspected COVID-19 024466283 Z03.89 [id number] MD Darwin Alberto 14 PEDS [address] [facility] [place] [address] 05/05/2020 15:37:02 05/06/2020 14:51:03 Low back pain 468659449 M54.5 -Advised will check urine to r/o infection or kidney stone-Advi sed to take medication as prescribed -Can use heat/ice to area-Light muscle stretches. -To report back if no improvemen t or worsening in symptoms. [id number] MD Darwin Patton [address] [facility] [place] [address] 06/22/2021 09:38:33 06/24/2021 23:43:16 History AND physical examination 19385676 Z02.89 Recommende d heart healthy diet with exercise.S afe sexual activity emphasized if you're active.If you have exposure to nicotine or other illicit drugs including alcohol - to scale down and stop the habit. Body mass index 30+ - obesity 366767610 Z68.31 Recommend to loose weight with diet control and exercise. Needs infl uenza immunization 362229834 Z28.3 Denies allergy to egg white nor h/o GBS [id number] MD Darwin Eddy [address] [facility] [address] [place] [address] 10/08/2023 11:24:03 10/11/2023 09:29:23 Body mass index 30+ - obesity 861431106 Z68.30 Increased muscle mass. Adheres to healthy diet and exercises regularly. Encouraged continued healthy habits. HIV screening 754470912 Z11.4 Hepatitis C screening 39 5168302 Z11.59 Long-term current use of steroid 217991178 Z79.52 Has recently started using testostero ne supplement s.Discusse d risks regarding using testostero ne without medical indication . Pt voices understand ing of the risks, and wishes to continue at this time.-Will check CBC for polycythem ia, PSA, lipid panel, CMP for liver functions, and testostero ne levels.-Pt is open to discuss cessation/ reduction of testostero ne if levels are too high, or having adverse effects-Gi zaki that he has been using IM formulatio n and getting from unknown source, high risk. Will check Hepatitis B, C, and HIV. Health Concerns Section Related Observation LastModified by Organization Detai ls LastModified Time None Recorded Concern Status LastModified by Organization Details LastModified Time None Recorded Advance Directives Directive None Recorded Payers Insurance Date Sequence Insurance Name Policy Number Policy Molina Covered Member ID Molina Member ID Guarantor Name 05/17/2021 1 [facility] [id number] Yasir Choudhary Maier [id number] Yasir Maier 11/08/2018 SLIDING FEE SCHEDULE - DISCOUNT Yasir Maier 03/10/2019 1 *SELF PAY* Ishmael gold Maier 02/17/2020 SLIDING FEE SCHEDULE - DISCOUNT Yasir Maier 04/09/2024 1 [facility] [id number] Yasir Choudhary Maier [id number] [facility] Maier 09/17/2023 1 [facility] [id number] Yasir Odessa [id number] Yasir Maier 06/29/2016 1 [place] [facility] [id number] Yasir Maier 07/31/2018 1 [facility] (MEDICAID HMO) [id number] Yasir Odessa [id number] [facility] Notes Date Note Type Note Provider Name and Address Organization Details Recorded Time 0 text/html Upper Respiratory SymptomsReported by PatientUpper Respiratory SymptomsFor quality, patient reportsproductive cough,colored phlegm, andcongested. For location, patient reportshead. [facility] 05/21/2019 13:38:25 0 text/html COVID-19 Symptoms August 2019Reported by PatientUpper Respiratory SymptomsFor covid-19 signs and symptoms, patient reportscough same,headache same, andsore throat same. For contacts and exposure, patient reportsclose contact with a confirmed or suspected case of covid-19(exposed 3 days ago.).ROS as noted in the HPI DARLENE Issa Attn: [place], [address], [facility] 02/18/2020 10:47:02 1 text/html Back PainReported by PatientHPIFor quality, patient reportssharp. For aggravating factors, patient reportstwisting. For location, patient reportspain is not radiating. For severity, patient reportssame. For duration, patient reportsacute. For onset/timing, patient [id number] ago. For associated symptoms, patient reportsno fever,no weak limbs,no numbness of the legs/feet,no tingling,no incontinence, andno shortness of breath.ROS as noted in the HPI Phone visit with patient due to covid. Pt reports R low back pain that started 2 days ago. Pt reports pain is worse with coughing or laughing. Pt denies any heavy lifting, exercising, or trauma. Pt does reports slight abdominal pain. Pt denies any urinary symptoms. He does report slight flank pain. There has been no blood in his urine. He is having regular BM. Pt denies any radiation of pain. Pain is worse with movement. Pain is worse with twisting. He took tylenol with relief of pain. No history of kidney stones. No N/V/D. Pt denies any fever. Pt denies any cough, congestion, chest pain, SOB, muscle weakness, numbness/tingling, or any other symptoms. All other ROS are negative. No known exposure to covid. Denies any concern for STD. 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 Started taking it because was feeling groggy, and not feeling like himself. Feels a more energized since starting. Started taking 3 weeks ago, twice a week. Getting it from a friend. Gets injected in the glutes. Denies increased aggression. Does have increased libido. Denies sharing needles. He injects 1 cc of the testosterone, he is unsure of the dosing.Pt has no other complaints at this time denying headache, fever, chills, cough, chest pain, palpitations, abdominal discomfort, nausea, vomiting, diarrhea, constipation, increase in urination frequency/dysuria. Past Medical HistoryAllergies: noneMedications: fish oil, vit d, milk thistle, vitamins and supplementsPMH: nonePSH: abdominal hernia repair in childhood Family HistoryMGF: lung cancerMGM: breast cancerMom: healthyDad: healthySister: cerebral palsy Social HistoryRelationship: monogamous with 1 partner for 4 yearsKids: 3 (7F, 5F, 2F) Partner has 2 other kidsWork: magnetic tape typewriter operator [employer] TerminalDiet: intermittent fasting.Exercise: weight lifting 4x/week, cardio 1x/week ETOH: once per monthTobacco: former smoker for 13 years. Quit 6 years ago.Drugs: smokes MJ on occasion Sexual HistorySexually active/# current partners: 1 partnerPrevious STD: noneLast time had STD testing: does not remember Iris Gamez MD Attn: Accounting,[address] [place], [address], [facility] 10/09/2023 09:36:06
--- OUTSIDE RECORDS SUMMARY | 2025-03-28 10:33 | XMS_ITS | Clinical Summary ---
Author Organization [facility] Address [address] [place] [address] Care Team Providers Care Gps Field Data Collector Name Role Phone No, Physician Primary Care Provider [phone] Allergies No known active allergies Medications ibuprofen (ADVIL,MOTRIN) 600 mg tablet Take 1 tablet (600 mg total) by mouth every 6 (six) hours as needed for pain 20 tablet 08/04/2021 Active Active Problems No known active problems Encounters Date Type Department Care Team Description 01/12/2025 9:05 AM CDT Lab [address] from Last 3 Months Medical History Medical History Date Comments ADHD (attention deficit hyperactivity disorder) Hiatal hernia Social History Tobacco Use Types Packs/Day Years Used Date Smoking Tobacco: Former Alcohol Use Standard Drinks/Week Comments Not Currently 0 (1 standard drink = 0.6 oz pur e alcohol) AUDIT-C Answer Date Recorded Q1: How often do you have a drink containing alc ohol? 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 Gender Identity Not on file Sexual Orientation Not on file Last Filed Vital Signs Vital Sign Reading Time Taken Comments Blood Pressure 119/81 10/08/2024 2:47 PM CDT Pulse 84 10/08/2024 2:47 PM CDT Temperature 36.7 C (98 F) 08/04/2021 7:24 PM CDT Respiratory Rate 18 08/04/2021 7:24 PM CDT Oxygen Saturation 96% 08/04/2021 7:24 PM CDT Inhaled Oxygen Concentration - - Weight 105.2 kg (232 lb) 10/08/2024 2:47 PM CDT Height 190.5 cm (6' 3) 10/08/2024 2:47 PM CDT Body Mass Index 29 10/08/2024 2:47 PM CDT Plan of Treatment Health Maintenance Due Date Last Done Comments Depression Screening 1988 Hepatitis C Screening 1988 DTaP/Tdap/Td Vaccine (1 - Tdap) 02/11/1999 Varicella Vaccines (1 of 2 - 13+ 2-dose series) 02/11/2001 Hepatitis B Screening 02/11/2006 Regular Well Visit/Exam 18-64 02/11/2006 HPV Vaccines (1 - 3-dose SCD M series) 02/11/2015 Influenza Vaccine (#1) 2024 Pneumococcal vaccine <65 Aged Out No longer eligible based on patient's age to complete this topic Procedures Procedure Name Priority Date/Time Associated Diagnosis Comments EGFR Routine 01/12/2025 9:15 AM CDT TSH Routine 01/12/2025 9:15 AM CDT CBC WITHOUT DIFFERENTIAL Routine 01/12/2025 9:15 AM CDT TESTOSTERONE, TOTAL AND FREE, SERUM Routine 01/12/2025 9:15 AM CDT LIPID PANEL Routine 01/12/2025 9:15 AM CDT COMPREHENSIVE METABOLIC PANEL Routine 01/12/2025 9:15 AM CDT from Last 3 Months Results * eGFR (01/12/2025 9:15 AM CDT) eGFR >90 >=60 mL/min/1. 73 m2 Comment: Interpretive Data Reference Interval Normal >/= 90 mL/min/1.73m2 Mildly decreased* 60 - 89 mL/min/1.73m2 Mildly to moderately decreased 45 - 59 mL/min/1.73m2 Moderately to severely decreased 30 - 44 mL/min/1.73m2 Severely decreased 15 - 29 mL/min/1.73m2 Kidney Failure < 15 mL/min/1.73m2 *Relative to young adult level Estimated glomerular filtration rate is determined by the 2020 CKD-EPI equation recommended by the National Kidney Foundation (A Unifying Approach to GFR Estimation: Recommendations of the NKF-ASK Task Force on Reassessing the Inclusion of Race in Diagnosing Kidney Disease, JASN 2020). The CKD-EPI equation should not be used for patients with unstable renal function and has not been validated in children and those over 70. Current interpretive data was last reviewed 2021. Blood 01/12/2025 9:15 AM CDT 01/12/2025 1:37 PM CDT us Cindy Raman NP LAB BLOOD ORDERABLES Final Res ult [facility] ([place]) 1 [facility] Department [place] [address] * (ABNORMAL) CBC without differential (01/12/2025 9:15 AM CDT) WBC 6.19 3.80 - 9.90 K/cumm Hgb 18.2(H) 13.0 - 17.5 g/dL [facility] ([place]) Hct 54.6(H) 38.9 - 50.3 % [facility] ([place]) Plt 297 150 - 400 K/cumm [facility] ([place]) MPV 9.5 9.1 - 12.3 fL [facility] ([place]) RBC 6.10(H) 4.30 - 5.80 M/cumm [facility] ([place]) MCV 89.5 81.3 - 96.4 fL [facility] ([place]) MCH 29.8 27.1 - 33.3 pg [facility] ([place]) MCHC 33.3 32.3 - 35.7 g/dL [facility] ([place]) RDW CV 12.3 11.1 - 14.9 % [facility] ([place]) RDW SD 40.4 35.7 - 48.1 fL [facility] ([place]) NRBC abs 0.00 0.00 - 0.01 K/cumm [facility] ([place]) Blood 01/12/2025 9:15 AM CDT 01/12/2025 1:37 PM CDT Cindy Raman NP LAB BLOOD ORDERABLES Final Res ult [facility] ([place]) 1 [facility] Department [place] [address] * (ABNORMAL) Testosterone, Total and Free, Serum (01/12/2025 9:15 AM CDT) [facility] Testosterone 147(L) 240 - 950 ng/dL [facility] Lab Comment: ADDITIONAL INFORMATION Testing performed by Liquid Chromatography-Tandem Mass Spectrometry (LC-MS/MS). This test was developed and its performance characteristics determined by [facility] in a manner consistent with CLIA requirements. This test has not been cleared or approved by the U.S. Food and Drug Administration. Test Performed by: [facility] [place] [address] Manager Of Business: Alpesh Hardin Ph.D.; CLIA# [id number] Testosterone, free 5.07 4.65 - 18.1 ng/dL [facility] ([facility]) Comment: ADDITIONAL INFORMATION This test was developed and its performance characteristics determined by [facility] in a manner consistent with CLIA requirements. This test has not been cleared or approved by the U.S. Food and Drug Administration. Blood 01/12/2025 9:15 AM CDT 01/12/2025 1:37 PM CDT Narrative [facility] ([facility]) - 01/16/2025 9:56 AM CDT [id number] Cindy Vincent MANAGER ED LAB BLOOD ORDERABLES Final Res ult [facility] ([place]) 1 [facility] [place] [address] [facility] * TSH (01/12/2025 9:15 AM CDT) Thyroid Stimulating Hormone 1.35 0.30 - 4.20 mcIUnit/mL Blood 01/12/2025 9:15 AM CDT 01/12/2025 1:37 PM CDT Cindy Raman MANAGER ED LAB BLOOD ORDERABLES Final Res ult Performing Organization Address [facility] Co de Phone Number [facility] ([place]) 1 [facility] [place] [address] * (ABNORMAL) Lipid panel (01/12/2025 9:15 AM CDT) Cholesterol 196 30 - 199 mg/dL Comment: Interpretive Data Ages < or = 19 years Acceptable: <170 mg/dL Borderline high: 170-199 mg/dL High: >or= 200 mg/dL Ages > or = 20 years Desirable: <200 mg/dL Borderline high: 200-239 mg/dL High: >or= 240 mg/dL Literature References: 1. Expert Panel on Integrated Guidelines for Cardiovascular Health and Risk Reduction in Children and Adolescents. Pediatrics 2011;128:S213 2. NCEP Expert Panel. Circulation 2004;110:227 Current Interpretive Data was last revised on 2017. Triglycerides 101 <=149 mg/dL [facility] ([place]) Comment: Interpretive Data Ages < or = 9 years Acceptable: <75 mg/dL Borderline high: 75-99 mg/dL High: >or= 100 mg/dL Ages 10 to 20 years Acceptable: <90 mg/dL Borderline high: 90-129 mg/dL High: >or= 130 mg/dL Ages > or = 20 years Desirable: <150 mg/dL Borderline high: 150-199 mg/dL High: 200-499 mg/dL Very high: >or= 499 mg/dL Literature References: 1. Expert Panel on Integrated Guidelines for Cardiovascular Health and Risk Reduction in Children and Adolescents. Pediatrics 2011;128:S213 2. NCEP Expert Panel. Circulation 2004;110:227 Current Interpretive Data was last revised on 2017. HDL 36(L) >=40 mg/dL [facility] ([place]) Comment: Interpretive Data Ages < or = 19 years Acceptable: >45 mg/dL Borderline low: 40-45 mg/dL Low: <40 mg/dL Ages > or = 20 years Desirable: >or= 60 mg/dL Low: <40 mg/dL Literature References: 1. Expert Panel on Integrated Guidelines for Cardiovascular Health and Risk Reduction in Children and Adolescents. Pediatrics 2011;128:S213 2. NCEP Expert Panel. Circulation 2004;110:227 Current Interpretive Data was last revised on 2017. LDL, calculated 142(H) <=129 mg/dL [facility] ([place]) Comment: Interpretive Data Ages < or = 19 years Acceptable: <110 mg/dL Borderline high: 110-129 mg/dL High: >or= 130 mg/dL Ages > or = 20 years Optimal: <100 mg/dL Near optimal: 100-129 mg/dL Borderline high: 130-159 mg/dL High: >160 mg/dL Calculated using the Ric LDL-C estimating equation. This equation was implemented on 2023. Prior to this date LDL-C was estimated using the Friedewald equation. Literature References: 1. Expert Panel on Integrated Guidelines for Cardiovascular Health and Risk Reduction in Children and Adolescents. Pediatrics 2011;128:S213 2. NCEP Expert Panel. Circulation 2004;110:227 3. Ric Choudhary et al. MOISES Cardiol. 2019July 31;5(5):540-548. doi: 10.1001/jamacardio.2020.0013 Current Interpretive Data was last revised on 2023. Non-HDL Cholesterol 160 mg/dL [facility] ([place]) Comment: Interpretive Data Ages < or = 19 years Acceptable: <120 mg/dL Borderline high: 120-144 mg/dL High: >145 mg/dL Ages > or = 20 years When triglycerides are >200 mg/dL, Non-HDL cholesterol is a secondary target of therapy with treatment goals that are 30 mg/dL greater than the LDL cholesterol target. Literature References: 1. Expert Panel on Integrated Guidelines for Cardiovascular Health and Risk Reduction in Children and Adolescents. Pediatrics 2011;128:S213 2. NCEP Expert Panel. Circulation 2004;110:227 Current Interpretive Data was last revised on 2017. Chol/HDL ratio 5 [facility] ([place]) Blood 01/12/2025 9:15 AM CDT 01/12/2025 1:37 PM CDT us Cindy Raman NP LAB BLOOD ORDERABLES Final Res ult [facility] ([place]) 1 [facility] Department [place] [address] * Comprehensive metabolic panel (01/12/2025 9:15 AM CDT) Sodium 138 135 - 145 mmol/L Potassium, pl 4.3 3.3 - 4.9 mmol/L [facility] ([place]) Chloride 102 97 - 110 mmol/L [facility]) CO2 23 22 - 32 mmol/L [facility] ([place]) Anion gap 13 2 - 15 mmol/L [facility] ([place]) BUN 20 6 - 25 mg/dL [facility] ([place]) Creatinine 1.04 0.80 - 1.30 mg/dL [facility] ([place]) Glucose 82 70 - 199 mg/dL [facility] ([place]) Comment: Interpretive Data Fasting glucose >/= 126 mg/dl is diagnostic for diabetes. Fasting is defined as no caloric intake for at least 8 hours. Fasting glucose between 100 mg/dl to 125 mg/dl is diagnostic of prediabetes. In a patient with classic symptoms of hyperglycemia or hyperglycemic crisis, a random glucose >/= 200 mg/dl is diagnostic for diabetes. In the absence of unequivocal hyperglycemia, results should be confirmed by repeat testing. The classification and Diagnosis of Diabetes Diabetes Care 2021; 46: S19-S40. Current interpretive data was last revised 2022. Calcium 9.6 8.5 - 10.3 mg/dL [facility] ([place]) Bilirubin, total 0.8 0.1 - 1.2 mg/dL [facility] ([place]) Protein, pl 7.8 6.5 - 8.5 g/dL [facility] ([place]) Albumin 4.7 3.5 - 5.0 g/dL [facility] ([place]) Alk phos 52 40 - 130 Units/L [facility] ([place]) ALT 20 7 - 55 Units/L [facility] ([place]) AST 31 10 - 50 Units/L [facility] ([place]) Blood 01/12/2025 9:15 AM CDT 01/12/2025 1:37 PM CDT us Cindy Raman NP LAB BLOOD ORDERABLES Final Res ult [facility] ([place]) 1 [facility] Department [place] [address] from Last 3 Months Insurance [facility] CHOICE PLUS CHOICE PLUS CHOICE PLUS [facility] CHOICE PLUS WORKERS COMPENSATION GENERIC ANASTASIA 1 Care Teams Gps Field Data Collector Relationship Specialty Start Date End Date No, Physician PCP - General 10/30/16
[2025-03-28 10:35] VITALS: BP 142/88; PULSE 77; RESP 16; TEMP 36.4; O2SAT 99
--- OUTSIDE RECORDS SUMMARY | 2025-03-28 10:36 | XMS_ITS | Clinical Summary ---
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
[2025-03-28 11:03] LABS: EDSTREPNEGPOS1 Negative (Negative)
--- NOTE | 2025-03-28 11:13 | ED_ITS ---
HPI - URI/Sore Throat General Chief Complaint: Upper Respiratory Infection Stated Complaint: throat Time Seen by Provider: 03/28/25 11:05 Source: patient and RN notes reviewed Mode of arrival: ambulatory Limitations: no limitations History of Present Illness HPI Narrative: 35-year-old male patient presents Express Care complaining of sore throat for 2 days. Patient also reports white spots on his throat. Patient took leftover amoxicillin the from his daughter and said his symptoms improved the next day. Patient denies any fevers, body aches, chills, nausea vomiting, cough, any other upper respiratory symptoms, chest pain, difficulty breathing, any other symptoms. Patient denies any significant past medical problems. Related Data Home Medications ?Medication ?Instructions ?Recorded ?Confirmed ?Last Taken ?Type testosterone cypionate 200 mg/mL mg 03/28/25 Unknown History intramuscular oil Allergies Allergy/AdvReac Type Severity Reaction Status Date / Time No Known Allergies Allergy Verified 03/28/25 10:43 Review of Systems Review of Systems: CONSTITUTIONAL: Denies fever, chills, or sweats. EYES: Denies visual changes, redness, or discharge. ENT: Denies rhinorrhea, congestion, or otalgia. Positive for sore throat CARDIOVASCULAR: Denies chest pain, palpitations, or edema. RESPIRATORY: Denies cough or dyspnea. GASTROINTESTINAL: Denies abdominal pain, nausea, vomiting, or diarrhea. GENITOURINARY: Denies dysuria or hematuria. SKIN: Denies rash or itching. MUSCULOSKELETAL: Denies back pain, joint pain, or myalgia. NEUROLOGIC: Denies headache, numbness, or weakness. PSYCHIATRIC: Denies anxiety or depression. All other systems reviewed are negative, except as documented in HPI. [facility] Surgical History Surgical History History of hernia surgery Family History Family History Mother Depression Anxiety Sibling Asthma Depression Anxiety Cancer Grandparent Cancer Grandparent Cancer Diabetes mellitus Heart disease Hypertension Social History Social History Smoking status: Never smoker Additional smoking assessment comments: does not smoke Alcohol intake: former Substance use: current Lack of Transportation: No Lack of Food: Sometimes True Current Housing: I Have Housing Concerned About Future Housing: No Difficulty Paying Gas/Electric Bills: YES Difficulty Paying for Meds: YES Currently Unemployed: No Education: High School Diploma/GED Difficulty w/ Childcare or Family Care: YES Additional occupation/education comments: Employed [employer] Agree to blood products: No Comments At the time of my signature, I reviewed and agree with the nursing past medical, surgical, social, and family history. There is no relevant family history pertinent to the patient complaint. Exam Narrative: GENERAL: This is a well-nourished, well-developed adult, in no apparent distress. They are non ill-appearing, nontoxic appearing. HEAD: normocephalic, atraumatic. EYES: Sclera clear/white. Conjunctiva normal. Vision is grossly intact. Extraocular movements intact EARS: External ears normal, auditory canals clear and without drainage, TMs normal without perforation. Hearing grossly intact. NOSE: External nose normal with no obvious nasal discharge, nasal turbinates without redness, no rhinorrhea. THROAT: Mucous membranes moist, posterior pharynx erythematous with exudate present. Uvula midline with white patches. NECK: Neck supple, mild tender cervical lymphadenopathy, no masses or thyromegaly. CARDIOVASCULAR: Regular rate and rhythm without murmurs, gallops, or rubs. RESPIRATORY: Clear to auscultation. Breath sounds equal bilaterally. No wheezes, rales, or rhonchi. SKIN: warm, Dry, intact with no suspicious lesions or rash, good texture and turgor. NEURO: awake, alert, and oriented to person, place and time. There were no obvious focal neurologic abnormalities. EXTREMITIES: No joint tenderness, effusion, or edema noted. BACK: Nontender without deformity. Course Course Level of Care: Express Care Visit Vital Signs Vital signs: Vital Signs Temperature 97.6 F 03/28/25 10:35 Pulse Rate 77 03/28/25 10:35 Respiratory Rate 16 03/28/25 10:35 Blood Pressure 142/88 H 03/28/25 10:35 Pulse Oximetry 99 03/28/25 10:35 Oxygen Delivery Room Air 03/28/25 10:35 Temperature 97.6 F 03/28/25 10:35 Pulse Rate 77 03/28/25 10:35 Respiratory Rate 16 03/28/25 10:35 Blood Pressure 142/88 H 03/28/25 10:35 Pulse Oximetry 99 03/28/25 10:35 Oxygen Delivery Room Air 03/28/25 10:35 [facility] Narrative Medical decision making narrative: Rapid strep negative. Throat culture is pending. Patient took leftover amoxicillin with improvement of symptoms, there is clinical suspicion patient may have strep pharyngitis. Through shared decision making on a patient like to go ahead and start antibiotic therapy. Prescription amoxicillin sent to pharmacy. Discussed supportive care. Discussed physical exam findings. Advised supportive measures and signs/symptoms to go to the ER. Pt is appropriate for outpt treatment and f/u. Differential Diagnosis Differential Diagnosis: Differential diagnostic considerations for upper respiratory infection include upper respiratory infection, croup, otitis media, sinusitis, viral infection, bronchitis, influenza, pharyngitis, strep, uvulitis. Lab Data [facility] Lab Attestation statement: I personally reviewed the patient's lab results. Labs: Lab Results 03/28/25 Range/Units 10:43 POC Grp A Strep Screen Negative (Negative) Critical Care Time Critical Care Time Critical Care Time: No Discharge Plan Discharge Clinical Impression: Pharyngitis Qualifiers: Pharyngitis/tonsillitis etiology: unspecified etiology Qualified Code(s): J02.9 - Acute pharyngitis, unspecified Patient Disposition: Home Condition: Stable Instructions: Antibiotic Form, Strep Throat (ED) Additional Instructions: A throat culture be sent off it is positive for strep you will be contacted. P heavenly take the amoxicillin as prescribed until gone. ?You will be contagious for 24 hours after starting the medication. ?After 24 hours on antibiotics throw tooth brush away and start using a new one. Wash your sheets and cup/water bottle that is used daily. Do not share drinks. Take Tylenol or Ibuprofen for pain or fever, follow instructions on the bottle. ?Rest and stay hydrated. ?Follow up with your PCP in 3 days if symptoms are not improving. ?Go to the ER immediately if you develop worsening symptoms such as shortness of breath, chest pain, vomiting, difficulty swallowing or any serious concerns. ? Patient Language: Hungarian Prescriptions: New amoxicillin 500 mg tablet 500 mg PO Q12H 10 Days Qty: 20 0RF No Action testosterone cypionate 200 mg/mL oil Follow-up/Referrals: Cindy Raman APRN [Primary Care Provider, [facility]] Time of Disposition: 11:13
== END 2025-03-28 11:16 | disposition home or self-care (01) ==
PROVIDERS: PCP Nurse Practitioner Adult Health
DX: J02.9 Acute pharyngitis, unspecified (principal)
CPT/HCPCS: 87081; 87880; 99213; G0463